=== PATIENT | male | born 1960 | race Caucasian/White ===

== ENCOUNTER 2019-04-05 05:26 | Emergency (ER) | payer BC ==
[~2019-04-05] VITALS: Ht 172.7 cm; Wt 101.8 kg
[~2019-04-05 05:26] MED LIST: ASPI81TAEC PO; MECL12.575 PO; PRAV20TA2 PO; SYNT112T2 PO; SYNT125T PO
[2019-04-05] MEDS ORDERED: ALLO100T PO (05:32)
[2019-04-05] MEDS ORDERED: INDOMETHACIN 25 MG CAP PO ONE (06:15)
[2019-04-05 06:44] LABS: BASO # 0.1 10^3/uL (0.0-0.2); BASO % 0.7 % (0.0-1.0); EOS # 0.3 10^3/uL (0.0-0.5); EOS % 3.5 % (0.0-3.0); HEMATOCRIT 50.8 % (42.0-52.0); HEMOGLOBIN 16.7 g/dl (13.5-17.5); LYMPH # 1.5 10^3/uL (1.5-5.0); LYMPH % 20.5 % (24.0-44.0); MEAN CORPUSCULAR HEMOGLOBIN 31.1 pg (27.0-33.0); MEAN CORPUSCULAR HGB CONC 32.9 g/dl (32.0-36.5); MEAN CORPUSCULAR VOLUME 94.6 fl (80.0-96.0); MONO # 0.7 10^3/uL (0.0-0.8); MONO % 8.8 % (0.0-5.0); NEUTROPHILS # 4.9 10^3/uL (1.5-8.5); NEUTROPHILS % 66.1 % (36.0-66.0); PLATELET COUNT, AUTOMATED 234 10^3/uL (150-450); RED BLOOD COUNT 5.37 10^6/uL (4.30-6.10); WHITE BLOOD COUNT 7.4 10^3/uL (4.0-10.0)
[2019-04-05 06:51] LABS: BLOOD UREA NITROGEN 20 MG/DL (7-18); CALCIUM LEVEL 9.4 MG/DL (8.8-10.2); CARBON DIOXIDE LEVEL 29 MEQ/L (21-32); CHLORIDE LEVEL 103 MEQ/L (98-107); CREATININE FOR GFR 1.21 MG/DL (0.70-1.30); GLOMERULAR FILTRATION RATE > 60.0 (>49); GLUCOSE, FASTING 116 MG/DL (70-100); POTASSIUM SERUM 4.6 MEQ/L (3.5-5.1); SODIUM LEVEL 139 MEQ/L (136-145); URIC ACID 3.6 MG/DL (3.5-7.2)
[2019-04-05] MEDS ORDERED: ACETAMINOPH W/CODEINE #3 TAB UD PO ONE (08:45)
[2019-04-05] MEDS ORDERED: INDO50CA91 PO (09:41)
[2019-04-05 09:50] VITALS: BP 133/82
--- NOTE | 2019-04-05 09:58 | REP ---
Left knee five views: There are no comparisons. Mineralization and joint spaces are unremarkable. There is no joint effusion. There is calcification along the medial cortex of the proximal tibia on one oblique view, likely old calcified periosteal reactive change. This is likely post-traumatic. No associated lytic or destructive changes are identified. On the opposite oblique view there is a faintly visible calcification along the superior margin of the medial femoral condyle, likely degenerative ligamentous calcification. Faintly visible calcified vascular atheroma is identified. There is an accessory ossicle at the tibial tubercle. Electronically Signed by Kimo Gu MD 04/05/2019 09:49 A
== END 2019-04-05 09:58 | disposition home or self-care (01) ==
LOC: M ED 05:26
DX: M10.062 Idiopathic gout, left knee (principal); E03.9 Hypothyroidism, unspecified; E78.5 Hyperlipidemia, unspecified; F17.210 Nicotine dependence, cigarettes, uncomplicated; Z79.899 Other long term (current) drug therapy; Z79.82 Long term (current) use of aspirin

== ENCOUNTER → 2020-05-10 | Outpatient (CLI) | payer BC ==
[~2020-05-10] MED LIST changes: +ALLO100T PO; +INDO50CA91 PO; +LISI20TA20; -MECL12.575 PO; +MECL12.590 PO
== END ==
LOC: M LABSMTC 12:50
PROVIDERS: ATTEND Anesthesiology
DX: Z01.812 Encounter for preprocedural laboratory examination (principal)

== ENCOUNTER → 2020-09-12 | Outpatient (CLI) | payer BC ==
[~2020-09-12] MED LIST changes: +ASPI-569 PO; -ASPI81TAEC PO; +MECL-136 PO; -MECL12.590 PO
[2020-09-12 13:38] LABS: BASO # 0.1 10^3/uL (0.0-0.2); BASO % 1.1 % (0.0-1.0); EOS # 0.2 10^3/uL (0.0-0.5); EOS % 3.2 % (0.0-3.0); HEMATOCRIT 49.6 % (42.0-52.0); HEMOGLOBIN 16.5 g/dl (13.5-17.5); LYMPH # 1.4 10^3/uL (1.5-5.0); LYMPH % 21.9 % (24.0-44.0); MEAN CORPUSCULAR HEMOGLOBIN 30.8 pg (27.0-33.0); MEAN CORPUSCULAR HGB CONC 33.3 g/dl (32.0-36.5); MEAN CORPUSCULAR VOLUME 92.7 fl (80.0-96.0); MONO # 0.7 10^3/uL (0.0-0.8); MONO % 10.6 % (2.0-8.0); NEUTROPHILS # 4.1 10^3/uL (1.5-8.5); NEUTROPHILS % 62.7 % (36.0-66.0); PLATELET COUNT, AUTOMATED 204 10^3/uL (150-450); RED BLOOD COUNT 5.35 10^6/uL (4.30-6.10); WHITE BLOOD COUNT 6.5 10^3/uL (4.0-10.0)
[2020-09-12 14:03] LABS: C REACTIVE PROTEIN QUANTITATIV 0.88 MG/DL (0.00-0.30); RHEUMATOID FACTOR QUANT < 10.0 IU/ML (<15.0); URIC ACID 4.3 MG/DL (3.5-7.2)
[2020-09-12 14:15] LABS: ERYTHROCYTE SEDIMENTATION RATE 3 mm/hr (0-20)
[2020-09-13 16:09] LABS: ANTINUCLEAR ANTIBODIES DIRECT Negative (Negative); Lyme Disease IgG/IgM Antibodie <0.91 ISR (0.00-0.90); Lyme Disease IgM Ab Quantitati <0.80 index (0.00-0.79)
== END ==
LOC: M PLALAB 10:04
PROVIDERS: ATTEND Physician Assistant Surgical
DX: M65.841 Other synovitis and tenosynovitis, right hand (principal)

== ENCOUNTER → 2021-02-08 | Outpatient (CLI) | payer BC ==
--- NOTE | 2021-02-08 15:56 | REP ---
INDICATION: THYROID NODULE. COMPARISON: 01/31/2020 TECHNIQUE: Real-time sonographic evaluation of the thyroid gland FINDINGS: The right lobe of the thyroid gland measures 3.5 x 1 x 1.4 cm and the left lobe measures 3.2 x 1 x 1 cm. The isthmus measures between 3 and 4 mm. The thyroid parenchymal echo pattern is heterogenous bilaterally. The echo pattern is unchanged from the prior exam. The 8 mm size nodule seen previously is unchanged. There is a new 6 mm size nodule just inferior to that. IMPRESSION: New 6 mm size nodule in the right lobe of the thyroid gland as described above. The examination is otherwise unchanged. <Electronically signed by Lio Strickland > 02/08/21 [id number]
== END ==
LOC: M RAD 14:52
PROVIDERS: ATTEND Internal Medicine Endocrinology, Diabetes & Metabolism
DX: E04.1 Nontoxic single thyroid nodule (principal)

== ENCOUNTER → 2024-07-09 | Outpatient (CLI) | payer MEDICARE, OTHER ==
[~2024-07-09] MED LIST changes: -LISI20TA20; +LISI20TA37
== END ==
LOC: M PLAIMG 10:30
PROVIDERS: ATTEND Nurse Practitioner Adult Health
DX: R91.8 Other nonspecific abnormal finding of lung field (principal)

== ENCOUNTER → 2024-08-12 | Outpatient (CLI) | payer OTHER | LOC: M CARPUL 10:27 | PROVIDERS: ATTEND Physician Assistant | DX: I25.10 Atherosclerotic heart disease of native coronary artery without angina pectoris (principal) ==

== ENCOUNTER → 2024-09-28 | Outpatient (CLI) | payer MEDICARE, OTHER | LOC: M PLAIMG 13:30 | PROVIDERS: ATTEND Physician Assistant | DX: I71.21 Aneurysm of the ascending aorta, without rupture (principal) ==

== ENCOUNTER → 2025-02-07 | Outpatient (CLI) | payer OTHER ==
[~2025-02-07] MED LIST changes: -PRAV20TA2 PO; +PRAV20TA78 PO
== END ==
LOC: M PLAIMG 11:58
PROVIDERS: ATTEND Nurse Practitioner Adult Health
DX: R91.8 Other nonspecific abnormal finding of lung field (principal)